=== PATIENT | female | born 1945 | race Caucasian/White ===

== ENCOUNTER → 2017-09-04 | Day surgery (SDC) | payer OTHER ==
[2017-09-02 11:43] LABS: BASOPHILS # (AUTO) 0.1 (0.0-0.1); BASOPHILS % 0.7 % (0.0-1.0); EOSINOPHILS # (AUTO) 0.1 (0.0-0.4); EOSINOPHILS % 1.1 % (0.0-6.0); HEMATOCRIT 42.9 % (34.2-44.1); HEMOGLOBIN 14.1 g/dL (12.0-16.0); LYMPHOCYTES # (AUTO) 1.7 (1.0-3.2); LYMPHOCYTES % 23.3 % (18.0-39.1); MEAN CORPUSCULAR HEMOGLOBIN 31.1 pg (28-32); MEAN CORPUSCULAR HGB CONC 32.9 g/dL (31-35); MEAN CORPUSCULAR VOLUME 94.7 fL (81-99); MONOCYTES # (AUTO) 0.5 (0.2-0.8); MONOCYTES % 6.5 % (4.4-11.3); NEUTROPHILS % 67.7 % (38.7-80.0); PLATELET COUNT 239 x10e3/uL (140-360); RED BLOOD COUNT 4.53 x10e6/uL (3.6-5.1); RED CELL DISTRIBUTION WIDTH 14.5 % (11.7-14.4)
[2017-09-02 12:00] LABS: INR 0.89; PROTHROMBIN TIME 11.3 seconds (11.9-14.5)
[2017-09-02 12:01] LABS: PARTIAL THROMBOPLASTIN TIME 39.5 seconds (23.8-35.5)
--- NOTE | 2017-09-02 12:04 | Diagnostic Imaging Report ---
PROCEDURE: Frontal and lateral views of the chest. COMPARISON: None. INDICATIONS: PREOPERATIVE CHEST XRAY FOR LEFT FOOT SURGERY FINDINGS: Lines/tubes: None. Lungs: The lungs are well inflated and clear. There is no evidence of pneumonia or pulmonary edema. Pleura: There is no pleural effusion or pneumothorax. Heart and mediastinum: The heart and the mediastinum are normal. Atherosclerotic calcifications. Bones: No acute bony abnormality. Degenerative changes of the thoracic spine. IMPRESSION: No acute radiographic abnormality. Dictated by: Christos Sanchez M.D. on 09/02/2017 at 12:04 Electronically approved by: Christos Sanchez M.D. on 09/02/2017 at 12:04
[2017-09-02 12:07] LABS: ANION GAP 13.9 mmol/L (8-16); CALCIUM 9.9 mg/dL (8.4-10.2); CREATININE, SERUM 1.07 mg/dL (0.57-1.11); POTASSIUM 4.9 mmol/L (3.5-5.1)
[~2017-09-04] MED LIST: BETAMETHASONE DISODIUM PHOS 6 MG/ML VIAL ONE; BUPIVACAINE HCL 0.5% INJ 30 ML VIAL INJ ONE; CALCIUM CARBON500 MG PO; CALCIUM CITRAT250 MG PO; CARTIA XT120 MG PO; CEFAZOLIN SOD 1 GM VIAL ONE; DEXAMETHASONE SOD PHOS INJ 4 MG/ML VIAL ONE; FENTANYL CITRATE/PF 100MCG/2 ML INJ ONE; FUROSEMIDE40 MG PO; KETOROLAC TROMETHAMINE 30 MG/ML VIAL ONE; KLOR-CON 1010 MEQ PO; LEVOTHYROXINE75 MCG PO; LIDOCAINE HCL 2% LOCAL INJ 5 ML SDV VIAL INJ ONE; LOSARTAN POTAS100 MG PO; MIDAZOLAM HCL 2 MG/2 ML VIAL ONE; MUPIROCIN 2% OINT 22 GM TUBE ONE; ONDANSETRON HCL INJ 2 MG/ML VIAL ONE; PRENATAL ONE T1 EACH PO; PROPOFOL IV EMULSION 10 MG/ML 20 ML VIAL ONE; SEVOFLURANE INHAL SOLN 250 ML PEN BTL ONE; XARELTO20 MG PO
--- OUTSIDE RECORDS SUMMARY | 2017-09-04 05:17 | XMS REPORT ---
[facility] Address Unknown Phone Unavailable Care Team Providers [employer] Name Role Phone MATTIE HAWKINS Unavailable Unavailable Problems This patient has no known problems. Allergies, Adverse Reactions, Alerts This patient has no known allergies or adverse reactions. Medications This patient has no known medications. Results Test Description Test Time Test Comments Text Results Atomic Results Result Comments CHEST 2 VIEWS [place] [address] Patient Name: GABRIELA BYRD MR #: [id number] : 1945 Age/Sex: 72/F Req # : [id number] Adm Physician: Ordered by: MATTIE HAWKINS DPM Report #: [id number] Location: OR Room/Bed: Procedure: [id number] DX/CHEST 2 VIEWS Exam Date: 09/02/17 Exam Time: 1145 REPORT STATUS: Signed PROCEDURE: Frontal and lateral views of the chest. COMPARISON: None. INDICATIONS: PREOPERATIVE CHEST XRAY FOR LEFT FOOT SURGERY FINDINGS: Lines/tubes: None. Lungs: The lungs are well inflated and clear. There is no evidence of pneumonia or pulmonary edema. Pleura: There is no pleural effusion or pneumothorax. Heart and mediastinum: The heart and the mediastinum are normal. Atherosclerotic calcifications. Bones: No acute bony abnormality. Degenerative changes of the thoracic spine. IMPRESSION: No acute radiographic abnormality. Dictated by: Talita Sanchez M.D. on 2017 at 12:04 Electronically approved by: Talita Sanchez M.D. on 2017 at 12:04 Dictated By: TALITA SANCHEZ MD [id number] Transcribed By: EDIS on 09/02/17 1204 COPY TO: MATTIE HAWKINS DPM
[2017-09-04 06:20] LABS: INR 0.9; PROTHROMBIN TIME 11.4 seconds (11.9-14.5)
[2017-09-04 06:21] LABS: PARTIAL THROMBOPLASTIN TIME 27.2 seconds (23.8-35.5)
--- NOTE | 2017-09-04 09:23 | Operative Report ---
DATE OF PROCEDURE: September 04, 2017 PREOPERATIVE DIAGNOSES 1. Painful hallux valgus deformity, left foot. 2. Painful contracted hammertoe, 2nd digit, left foot. 3. Painful contracted hammertoe, 3rd digit, left foot. 4. Painful contracted hammertoe, 4th digit, left foot. 5. Painful contracted hammertoe, 5th digit, left foot. POSTOPERATIVE DIAGNOSES 1. Painful hallux valgus deformity, left foot. 2. Painful contracted hammertoe, 2nd digit, left foot. 3. Painful contracted hammertoe, 3rd digit, left foot. 4. Painful contracted hammertoe, 4th digit, left foot. 5. Painful contracted hammertoe, 5th digit, left foot. OPERATIVE PROCEDURES 1. Néstor bunionectomy with screw fixation, left foot. 2. Arthroplasty, 2nd with K-wire fixation, 2nd through 4th digits, left foot. 3. Arthroplasty, 3rd with K-wire fixation, 2nd through 4th digits, left foot. 4. Arthroplasty, 4th with K-wire fixation, 2nd through 4th digits, left foot. 5. Arthroplasty, 5th with K-wire fixation, 2nd through 4th digits, left foot. 6. Intraoperative use of fluoroscopy. 7. Trigger point shot of cortisone. 8. Application of posterior splint. PROCEDURE IN DETAIL: Patient was taken into the operating room and placed on the operating table in the supine position. Following induction of general anesthesia by the anesthesiologist, Webril wraps were placed on the patient's left thigh followed by application of a left thigh tourniquet. The left lower extremity was then prepped and draped in the usual aseptic manner. The following procedures were then performed. PROCEDURE #1: Néstor bunionectomy and screw fixation, left foot. Attention was directed to the dorsomedial aspect of the 1st MPJ where a 6 cm linear incision was performed. Incision was deepened down to the joint capsule. Longitudinal capsulotomy was then performed exposing the exostosis of the medial aspect of the 1st metatarsal head. Via use of an oscillating, exostosis was excised from the operation site in toto. All rough and bony edges were rasped smooth. A V-osteotomy was then performed from medial to lateral. Capital fragment was then transpositioned laterally. Upon adequate surgical and anatomical reduction, utilizing a proper AO technique, a 2 x 14 mm cortical screw in conjunction with a buried 0.045 K-wire was used to achieve stability at the osteotomy site. All redundant bone medially was excised via the use of an oscillating saw and rotating bur. PROCEDURES 2-5: Arthroplasty, 2nd through 5th with K-wire fixation, 2nd through 4th. Attention was then directed to the dorsal aspect of the above-mentioned toes surrounding the proximal interphalangeal joint where a 3 cm linear incision was performed. The incision was deepened down to the joint capsule. Transverse capsulotomy was then performed exposing the head of the proximal phalanxes. Via the use of an oscillating saw, the head of the proximal phalanxes were excised from the operation site in toto. All rough and bony edges were rasped smooth. The 2nd through 4th toes were still noted to be contractures. A 0.045 K-wire was introduced crossing the metatarsophalangeal joints to achieve proper anatomical reduction. PROCEDURE #6: Intraoperative use of fluoroscopy was then used to make sure proper alignment and fixation was achieved. Closure was then obtained utilizing 3-0 Vicryl, 4-0 Vicryl and 4-0 nylon for capsule, subcutaneous tissue and skin respectively after properly and copiously flushing the areas with sterile saline. PROCEDURE #7: Trigger point shot of cortisone was then given to the 1st and 4th interspace of the left foot. Then approximately 15-20 mL of 0.5% plain Marcaine were used to achieve local anesthesia of the above-mentioned surgical area. Sterile dressing was applied. Upon release of the thigh tourniquet, blood hyperemia was noted immediate to all digits of the patient's left foot. PROCEDURE #8: Application of posterior splint. A properly placed posterior splint was then applied keeping the foot at 90 degrees with respect to the leg to try to prevent postoperative complications. Patient was then transferred from the OR to the recovery room with vital signs stable and neurovascular status intact. No intraoperative complications were encountered. Blood loss from the surgery was minimal. Patient to remain nonweightbearing with the aid of crutches. Keep her foot elevated, and is to apply an ice pack to the ankle joint area. Job#: [id number]
--- NOTE | 2017-09-04 09:46 | Diagnostic Imaging Report ---
PROCEDURE:X-RAY LEFT FOOT, TWO VIEWS COMPARISON:None. INDICATIONS:POST OP FOOT LEFT FINDINGS: See conclusion. CONCLUSION: AP and lateral post-operative views of the left foot with overlying bandage material show post-surgical changes with with a wire and screw through the distal first metatarsal and surgical pins traversing the phalanges of the second, third, and fourth rays. The pins of the second and third rays protrude through the medial cortices of the metatarsals There is surrounding soft-tissue swelling consistent with recent surgery. Please refer to performing physician's notes for full details of this procedure. Dictated by: Barry Diehl M.D. on 09/04/2017 at 9:46 Electronically approved by: Barry Diehl M.D. on 09/04/2017 at 9:46
== END | disposition home or self-care (01) ==
LOC: OR 05:15
PROVIDERS: ATTEND Podiatrist Foot Surgery
DX: M20.12 Hallux valgus (acquired), left foot (principal); M20.42 Other hammer toe(s) (acquired), left foot; G47.33 Obstructive sleep apnea (adult) (pediatric); I10 Essential (primary) hypertension; E66.9 Obesity, unspecified; Z01.810 Encounter for preprocedural cardiovascular examination; Z01.812 Encounter for preprocedural laboratory examination; Z01.818 Encounter for other preprocedural examination
CPT/HCPCS: 28285 ×4; 28296; 36415 ×2; 71046; 73620; 80048; 85025; 85610 ×2; 85730 ×2; 93005; C1713; J0690; J0720; J1100; J1885; J2001; J2250; J2405